=== PATIENT | male | born 1950 | race Caucasian/White ===

== ENCOUNTER 2017-08-11 16:17 | Emergency (ER) | payer OTHER, MEDICAID, MEDICARE, SELFPAY ==
[2017-08-11 16:18] VITALS: BP 128/97; PULSE 88; RESP 16; TEMP 36.1; O2SAT 95; BMI 30.6
--- NOTE | 2017-08-11 16:54 | CT_ITS ---
STUDY: CT BRAIN WITHOUT CONTRAST REASON FOR EXAM: Male, 67 years old. Head trauma, left eye laceration. RADIATION DOSAGE (If Supplied By Facility): CTDIvol = ( 44.99 ) mGy, DLP = ( 796.11 ) mGycm TECHNIQUE: Transaxial CT imaging of the brain was performed without administration of intravenous contrast material. Individualized dose optimization techniques were used for this CT. COMPARISON: Noncontrast CT brain July 24, 2015. FINDINGS: There is a soft tissue laceration of the left brow, and nondisplaced curvilinear fracture through left supraorbital rim. The intra and extraconal components of the left orbit are otherwise intact. Normal calvarium. Normal size ventricles and extra-axial spaces for the patient's age. Normal white matter tracts of the cerebral hemispheres. Normal basal ganglia and thalami. Normal brainstem. There is a wedge-shaped defect consistent with old infarct in the left cerebellar hemisphere. There is no intracranial hemorrhage. There are no findings of an acute ischemic infarction. There is mucoperiosteal thickening in the bilateral frontal and anterior ethmoid sinuses. CT/Brain/Head without Contrast IMPRESSION: 1. Soft tissue laceration of the left brow and underlying nondisplaced curvilinear fracture through the left supraorbital rim. The soft tissue structures of the left orbit are otherwise intact. 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 No acute intracranial injury. 3. Mucoperiosteal thickening in the bilateral frontal and anterior ethmoid sinuses. Electronically Signed: Jaydon Clark MD at 18:27 EST , Service support ,
--- NOTE | 2017-08-11 16:54 | CT_ITS ---
STUDY: CT ORBITS WITHOUT CONTRAST REASON FOR EXAM: Male, 67 years old. Head trauma, laceration left eye. RADIATION DOSAGE (If Supplied By Facility): CTDIvol = ( 29.38 ) mGy, DLP = ( 620.92 ) mGycm TECHNIQUE: The patient was scanned in a multi detector CT scanner. Transaxial imaging was performed without the administration of intravenous contrast material. Sagittal and coronal images were reconstructed. Individualized dose optimization techniques were used for this CT. COMPARISON: None. FINDINGS: Normal globes. Normal intraconal spaces. Normal optic nerve sheath complex. Normal bilateral extraocular muscles. Normal lacrimal glands. There soft tissue laceration of the left brow, with mild underlying soft tissue swelling. Mild left infraorbital soft tissue swelling also present. There is a nondisplaced curvilinear fracture through the left supraorbital rim, extending into the lateral base of the left frontal sinus. Normal bilateral medial and inferior orbital card. Normal bilateral maxillary bones. Curvilinear discontinuities at the tip of the nasal bones may be a normal finding for this patient, but small nondisplaced fracture is difficult to fully exclude. Normal bilateral frontozygomatic arches. Normal bilateral zygomatic temporal arches. There is mucoperiosteal thickening in the bilateral frontal sinuses, greater on the left, and in the anterior ethmoid air cells. Mild mucoperiosteal thickening in the posterior basilar maxillary antra. Normal sphenoid sinuses. There are coarse calcifications in the right faucial tonsil, and punctate calcifications on the left. The visualized nasopharynx and oropharynx are widely patent, however. CT/Orb Sella Post Fossa Ear w/o IMPRESSION: 1. Soft tissue laceration of the left brow and nondisplaced curvilinear fracture through left supraorbital rim, accompanied by minimal soft tissue swelling. 2. No demonstrated intraconal or extraconal orbital injury. 3. The fracture line extends into the left frontal sinus, and there is mucoperiosteal thickening in the left frontal sinus fluid mildly greater degree than on the right. Minor mucoperiosteal thickening also seen in the anterior bilateral ethmoid sinuses. Electronically Signed: Jaydon Clark MD at 18:23 EST , Service support ,
[2017-08-11] MEDS: Diphth,Pertuss(Acell),Tet Vac 0.5 ML Vial IM (17:08)
[2017-08-11] MEDS: Tetracaine 0.5% Ophthalmic Bottle 2 DRP LEFT EYE (17:10)
[2017-08-11 19:10] VITALS: RESP 16
--- NOTE | 2017-08-11 20:16 | ED.VISSUMM ---
- ER Visit Summary Date of Service: 08/11/17 Chief Complaint: Head injury History of Present Illness: The patient is a 67 M presents after head injury. Patient states he was using a [employer] and it malfunctioned. It came back and hit him in the face. The actual blade did not hit his face. He has pain around his left eye. He has a laceration to the left forehead. He last tetanus is unknown. He had no loss of consciousness. No other injuries. Physical Examination: Vitals are stable. Patient is afebrile. Alert no acute distress. HEENT exam 2 cm laceration above left eyebrow. left pupil is dilated and minimally reactive. IOP is 9 on the left. Neck is nontender Lungs are clear and equal bilaterally. Heart is regular rate and rhythm. Abdomen is soft nontender nondistended. Extremities are unremarkable. Skin is warm and dry. No focal neurologic deficit. Remainder of exam is unremarkable. Emergency Department Course and Treatment: Visual acuity 20/20 OD, 20/30 OS; CT orbit shows soft tissue laceration of the left brow and nondisplaced curvilinear fracture through left supraorbital rim, accompanied by minimal soft tissue swelling. No demonstrated intraconal or extraconal orbital injury. The fracture line extends into the left frontal sinus, and there is mucoperiosteal thickening in the left frontal sinus fluid mildly greater degree than on the right. Minor mucoperiosteal thickening also seen in the anterior bilateral ethmoid sinuses. Laceration was repaired under sterile conditions. Anesthetized with lidocaine. Irrigated with saline. 3, 6-0 simple sutures were placed. He was given tetanus IM. Discussed with ophthalmology Dr. Diaz. Atropine 1% was instilled into the left eye along with prednisolone drops. Eye shield was placed. He was advised to not rub his eye under any circumstances. He was put on Keflex. He was given Zofran as needed for nausea. He is advised to follow-up with ophthalmology at 8 AM tomorrow morning. Advised to return to ED if worsening complaints. Disposition: Discharge home Impression: Left eye injury, left forehead laceration, laceration repair This note was generated with [employer] dictation software. It may contain incorrect words, spelling, and punctuation that were not noted in review of the chart prior to signing ED Disposition - Plan for ED Patient: Chief Complaint: Head Injury Instructions: ED Contusion Face Prescriptions: Ondansetron [Zofran Odt] 4 mg PO Q8H PRN PRN #10 tablet PRN Reason: Nausea Cephalexin [Keflex] 500 mg PO Q6 #40 capsule Referrals: Memo Diaz MD [STAFF PHYSICIAN] - Gurwinder Gardner MD [Primary Care Provider] -
--- NOTE | 2017-08-11 20:23 | ED.DEP ---
ED Disposition - Plan for ED Patient: Chief Complaint: Head Injury Instructions: ED Contusion Face Prescriptions: Ondansetron [Zofran Odt] 4 mg PO Q8H PRN PRN #10 tablet PRN Reason: Nausea Cephalexin [Keflex] 500 mg PO Q6 #40 capsule Referrals: Gurwinder Gardner MD [Primary Care Provider] - Memo Diaz MD [STAFF PHYSICIAN] -
[2017-08-11] MEDS: Atropine Sulfate 1% 2 ml Bottle 1 DRP OPHTHALMIC (20:41)
[2017-08-11] MEDS: Cephalexin 250 MG Capsule 500 MG PO (20:41)
[2017-08-11 20:55] VITALS: BP 137/88; PULSE 67; RESP 16; O2SAT 97
--- NOTE | 2017-08-11 20:57 | NURSING ---
SENT HOME WITH PREDNISONE EYE DROPS, GAUZE, AND EYE PATCH. PT WILL BE FOLLOWING UP WITH THE DOCTOR IN THE AM.
== END 2017-08-11 20:59 | disposition home or self-care (01) ==
PROVIDERS: Emergency Provider Emergency Medicine; Family Provider Internal Medicine; PCP Internal Medicine
DX: S02.82XA Fracture of other specified skull and facial bones, left side, initial encounter for closed fracture (principal); S01.81XA Laceration without foreign body of other part of head, initial encounter; W31.89XA Contact with other specified machinery, initial encounter; Y93.9 Activity, unspecified; Y92.9 Unspecified place or not applicable; Y99.9 Unspecified external cause status; Z23 Encounter for immunization; I10 Essential (primary) hypertension; Z79.82 Long term (current) use of aspirin; Z79.899 Other long term (current) drug therapy
CPT/HCPCS: 12011; 70450; 70480; 90715; 99285